=== PATIENT | male | born 1975 | race Caucasian/White ===

== ENCOUNTER 2016-11-11 21:34 | Emergency (ER) | payer MEDICARE, MEDICAID ==
[2013-04-01 14:08] VITALS: BMI 35.4
== END 2016-11-12 01:02 | disposition home or self-care (01) ==
LOC: D.ER 21:34
DX: J06.9 Acute upper respiratory infection, unspecified (principal); F32.9 Major depressive disorder, single episode, unspecified; F41.9 Anxiety disorder, unspecified; F17.200 Nicotine dependence, unspecified, uncomplicated

== ENCOUNTER → 2017-02-18 14:35 | Outpatient (CLI) | payer MEDICARE, MEDICAID ==
[2013-04-01 14:08] VITALS: BMI 35.4
== END | disposition home or self-care (01) ==
LOC: D.LAB 02-17 15:45 → D.LABREF 14:35 → D.LAB 15:00
PROVIDERS: Internal Medicine Gastroenterology
DX: R19.7 Diarrhea, unspecified (principal); K92.1 Melena

== ENCOUNTER 2017-05-13 13:11 | Emergency (ER) | payer MEDICARE, MEDICAID ==
[2013-04-01 14:08] VITALS: BMI 35.4
[2017-05-13 15:10] LABS: BASOPHILS 0.3 % (0-2); EOSINOPHILS 1.2 % (0-7); HEMOGLOBIN 13.9 g/dL (13.5-17.5); IMMATURE GRANULOCYTES 0.3 % (0-5); LYMPHOCYTES 30.9 % (15-50); MCH 34.1 pg (26.0-34.0); MCHC 33.9 g/dL (31.0-37.0); MCV 100.5 fL (80.0-100.0); NEUTROPHILS 60.3 % (40-80); RBC 4.08 10x6/uL (4.20-6.10); RDW 14.1 % (11.5-14.5); WBC 5.8 10x3/uL (4.8-10.8)
[2017-05-13 15:13] LABS: PLATELET COUNT 177 10x3/uL (130-400)
[2017-05-13 15:43] LABS: ALBUMIN 3.3 g/dL (3.4-5.0); ALKALINE PHOSPHATASE 76 U/L (46-116); ALT (SGPT) 36 U/L (10-68); BILIRUBIN - TOTAL 0.43 mg/dL (0.2-1.3); CALC OSMOLALITY 276 mosm/kg (275-300); CALCIUM 8.9 mg/dL (8.5-10.1); CARBON DIOXIDE 23.9 mmol/L (21.0-32.0); CHLORIDE - SERUM 104 mmol/L (98-107); CREATININE - SERUM 1.1 mg/dL (0.6-1.3); GLUCOSE 97 mg/dL (74-106); POTASSIUM - SERUM 4.4 mmol/L (3.5-5.1); PROTEIN - SERUM 6.7 g/dL (6.4-8.2); SODIUM 139 mmol/L (136-145); UREA NITROGEN 9 mg/dL (7-18); eGFR NON AFRICAN AMERICAN 78 mL/min (90-120)
== END 2017-05-13 16:15 | disposition home or self-care (01) ==
LOC: D.ER 13:11
PROVIDERS: Physician Assistant
DX: R55 Syncope and collapse (principal); R42 Dizziness and giddiness; R53.1 Weakness; S00.03XA Contusion of scalp, initial encounter; X58.XXXA Exposure to other specified factors, initial encounter; Y93.89 Activity, other specified; Y92.89 Other specified places as the place of occurrence of the external cause; F17.200 Nicotine dependence, unspecified, uncomplicated

== ENCOUNTER 2018-03-03 15:32 | Emergency (ER) | payer MEDICARE, MEDICAID ==
[2013-04-01 14:08] VITALS: BMI 35.4
== END 2018-03-03 16:43 | disposition home or self-care (01) ==
LOC: D.ER 15:32
DX: S93.401A Sprain of unspecified ligament of right ankle, initial encounter (principal); W19.XXXA Unspecified fall, initial encounter; Y93.89 Activity, other specified; Y92.019 Unspecified place in single-family (private) house as the place of occurrence of the external cause; M25.471 Effusion, right ankle; F17.200 Nicotine dependence, unspecified, uncomplicated

== ENCOUNTER 2019-06-24 13:33 | Inpatient (IN) | payer MEDICARE, MEDICAID ==
[~2019-06-24] VITALS: Ht 175.3 cm; Wt 104.8 kg
[2019-06-24 14:37] LABS: ALBUMIN 2.8 g/dL (3.4-5.0); ALKALINE PHOSPHATASE 64 U/L (46-116); ALT (SGPT) 27 U/L (10-68); BILIRUBIN - TOTAL 0.79 mg/dL (0.2-1.3); CALC OSMOLALITY 273 mosm/kg (275-300); CALCIUM 9.2 mg/dL (8.5-10.1); CARBON DIOXIDE 23.9 mmol/L (21.0-32.0); CHLORIDE - SERUM 100 mmol/L (98-107); CREATININE - SERUM 1.1 mg/dL (0.6-1.3); GLUCOSE 136 mg/dL (74-106); POTASSIUM - SERUM 3.7 mmol/L (3.5-5.1); PROTEIN - SERUM 8.5 g/dL (6.4-8.2); SODIUM 137 mmol/L (136-145); UREA NITROGEN 7 mg/dL (7-18); eGFR NON AFRICAN AMERICAN 77 mL/min (90-120)
[2019-06-24 14:39] LABS: BASOPHILS 0.2 % (0-2); EOSINOPHILS 0 % (0-7); HEMATOCRIT 38.8 % (42.0-54.0); HEMOGLOBIN 13.5 g/dL (13.5-17.5); IMMATURE GRANULOCYTES 0.7 % (0-5); LYMPHOCYTES 9.8 % (15-50); MCH 34.9 pg (26.0-34.0); MCHC 34.8 g/dL (31.0-37.0); MCV 100.3 fL (80.0-100.0); NEUTROPHILS 80.3 % (40-80); RBC 3.87 10x6/uL (4.20-6.10); RDW 13.3 % (11.5-14.5)
[2019-06-24 14:42] LABS: APPEARANCE CLEAR (CLEAR); BILIRUBIN NEGATIVE (NEGATIVE); COLOR YELLOW (YELLOW); GLUCOSE NEGATIVE (NEGATIVE); KETONE NEGATIVE (NEGATIVE); NITRITE NEGATIVE (NEGATIVE); PROTEIN NEGATIVE (NEGATIVE); UROBILINOGEN NORMAL (NORMAL)
[2019-06-24 14:44] LABS: AMYLASE - SERUM 27 U/L (25-115); LIPASE 86 U/L (73-393); WHITE CELLS - URINE 0-5 /hpf (0-5)
[2019-06-24 14:45] LABS: BACTERIA FEW /hpf (NONE SEEN); RED CELLS - URINE OCC /hpf (0-5)
[2019-06-24 14:46] LABS: PLATELET COUNT 360 10x3/uL (130-400)
[2019-06-24 18:47] LABS: APTT 36.9 SECONDS (22.8-39.4); INR 1.69 (0.85-1.17); PROTIME 19.2 SECONDS (11.6-15.0)
[2019-06-24 23:04] LABS: CKMB 0.5 U/L (0.0-3.6); CREATINE KINASE 135 UL (21-232)
[2019-06-24 23:05] LABS: TROPONIN-I < 0.017 ng/mL (0.000-0.060)
[2019-06-24 23:26] VITALS: BP 149/77
[2019-06-24 23:50] VITALS: BMI 34.2
[2019-06-25 01:24] VITALS: BP 131/90
[2019-06-25] MEDS ORDERED: VALIUM10 MG PO (01:59)
[2019-06-25] MEDS ORDERED: NEXIUM40 MG PO (02:00)
[2019-06-25] MEDS ORDERED: PAXIL CR25 MG PO (02:00)
[2019-06-25] MEDS ORDERED: COUMADIN6 MG PO (02:00)
[2019-06-25] MEDS ORDERED: NEURONTIN600 MG PO (02:00)
[2019-06-25] MEDS ORDERED: REXULTI1 MG PO (02:01)
[2019-06-25 05:44] VITALS: BP 127/76
[2019-06-25 06:41] LABS: BASOPHILS 0.1 % (0-2); EOSINOPHILS 0 % (0-7); HEMATOCRIT 32.3 % (42.0-54.0); IMMATURE GRANULOCYTES 0.6 % (0-5); LYMPHOCYTES 11.6 % (15-50); MCH 34.1 pg (26.0-34.0); MCHC 33.1 g/dL (31.0-37.0); MEAN PLATELET VOLUME 9.9 fL (7.4-10.4); MONOCYTES 7.4 % (2-11); NEUTROPHILS 80.3 % (40-80); RBC 3.14 10x6/uL (4.20-6.10); RDW 13.5 % (11.5-14.5)
[2019-06-25 07:05] LABS: APTT 34.6 SECONDS (22.8-39.4)
[2019-06-25 07:06] LABS: INR 1.26 (0.85-1.17); PROTIME 15.3 SECONDS (11.6-15.0)
[2019-06-25 07:07] LABS: HEMOGLOBIN 10.7 g/dL (13.5-17.5); MCV 102.9 fL (80.0-100.0); PLATELET COUNT 278 10x3/uL (130-400); WBC 9.5 10x3/uL (4.8-10.8)
[2019-06-25 07:19] LABS: CALCIUM 8.2 mg/dL (8.5-10.1); CARBON DIOXIDE 28.2 mmol/L (21.0-32.0); CHLORIDE - SERUM 105 mmol/L (98-107); CKMB 0.3 U/L (0.0-3.6); CREATINE KINASE 84 UL (21-232); GLUCOSE 153 mg/dL (74-106); POTASSIUM - SERUM 3.6 mmol/L (3.5-5.1); SODIUM 140 mmol/L (136-145); TROPONIN-I < 0.017 ng/mL (0.000-0.060)
[2019-06-25 07:21] LABS: CALC OSMOLALITY 278 mosm/kg (275-300); CREATININE - SERUM 0.8 mg/dL (0.6-1.3); UREA NITROGEN 5 mg/dL (7-18); eGFR NON AFRICAN AMERICAN > 90 mL/min (90-120)
--- NOTE | 2019-06-25 07:43 | OP ---
PATIENT NAME: MEL MAYEN MEDICAL RECORD: [id number] :73 LOCATION:D.MS [facility] ADMISSION DATE:06/24/19 SURGEON: CHRISTOPHER JOHN MD DATE OF OPERATION: 06/24/2019 PREOPERATIVE DIAGNOSIS: Rectal perforation, rectal foreign body, perirectal abscess. POSTOPERATIVE DIAGNOSIS: Rectal perforation, rectal foreign body, perirectal abscess. SURGEON: Christopher John MD PROCEDURE PERFORMED: 1. Flexible sigmoidoscopy. 2. Laparoscopic lysis of adhesions. 3. Laparotomy with drainage of rectal abscess, diverting loop ileostomy, and left subclavian CVL placement. ANESTHESIA: General. COMPLICATIONS: None. SPECIMENS: None. Case was grossly contaminated. ESTIMATED BLOOD LOSS: 200 cc. OPERATIVE COURSE: After consent was obtained, the patient was taken to the operating room and placed in supine position on the operating table. Next, general anesthesia was given. A timeout was taken to confirm the correct patient and procedure. The left chest was prepped and draped in typical sterile fashion. Local anesthetic was administered. The left subclavian vein was cannulated on the first pass. A guidewire was placed. A skin incision was made. A dilator was passed over the wire in a standard Seldinger fashion. The catheter was advanced to the wire in a standard Seldinger fashion. Biopatch was placed and secured to the skin using 2-0 nylon suture. All 3 ports were aspirated and flushed. Sterile Tegaderm dressing was placed. The patient was then placed into the lithotomy position in stirrups. There is a small curvilinear density noted on the preoperative imaging consistent with a rectal foreign body. At this time, flexible sigmoidoscopy was attempted. The rectum and sigmoid colon were copiously irrigated and suctioned. There was no evidence of mucosal trauma. No evidence of perforation. There is no area of hemorrhage or exudate noted from the first 30 cm of the rectum and colon. The scope was retroflexed and again examined. There was no evidence of trauma or injury within the rectum. At this time, the abdomen was prepped and draped in sterile fashion. Local anesthetic was injected in the right lateral quadrant. A stab incision was made with 11-blade scalpel. Using a 5-mm bladeless optical trocar, the abdomen was entered in direct laparoscopic vision. Adequate pneumoperitoneum was achieved. There were dense adhesions along the anterior midline from the patient's previous laparotomy incision and laparoscopic lysis of adhesions was performed using sharp scissor dissection as well as Harmonic scalpel dissection. The small bowel was retracted cephalad. The pelvis was copiously irrigated and suctioned. There was no trauma identified above the OPERATIVE REPORT [id number] TIARRAMEL S peritoneal reflection. At this time, a small lower midline laparotomy was made from the pubic symphysis towards the umbilicus. Skin incision was made with a 15 blade scalpel. Dissection continued with electrocautery until the subcutaneous tissue. The anterior fascia was identified. The fascia was incised using electrocautery along the midline. Peritoneum was opened under direct vision with electrocautery. Once the peritoneum was incised, the pneumoperitoneum was released. The trocars were removed. During the diagnostic laparoscopy, two additional trocars were placed, one in the right lower quadrant and once the midline was cleared, a third 5-mm trocar into the abdominal midline just above the umbilicus. While opening the peritoneum well above the pubic symphysis, mucosa was encountered upon further examination, we were looking at the mucosa of the inside of the bladder. The Ramírez balloon was identified at the base of the bladder. At this time, a primary bladder repair was performed. The inner layer was closed with a 2-0 chromic suture. The chromic layer was then imbricated using 3-0 Vicryl suture. An Etienne wound retractor was placed. The peritoneum was incised and the long needle left and right sides of the rectum. Blunt dissection was performed along the presacral fascia and abscess cavity was identified on both the right and left sides. At this time, FRANCINE drains were placed through the opening in the peritoneal reflection along the right and left posterior tracts of the rectum along the presacral fascia. The peritoneum was copiously irrigated and suctioned. FRANCINE drains were delivered to the trocar sites. The terminal ileum was identified approximately 10 cm in the proximal ileum. The loop of small bowel was identified, the circular incision was made in the right lower quadrant. Dissection was continued to subcutaneous tissue using electrocautery. A cruciate incision was made in the fascia and the muscles were gently spread. The peritoneum was incised using electrocautery. The loop was then brought through the incision to the anterior abdominal wall. Next, the fascia was closed in the lower midline abdominal incision using #1 looped PDS. Subcutaneous was closed with 3-0 Vicryl suture. The skin was closed with marcelo. FRANCINE drains were secured using 2-0 nylon suture and placed to bulb suction. The lower midline abdominal incision was covered with sterile gauze dressing and blue towel was placed in the right lower quadrant loop ileostomy was then created using a standard Wendy fashion using 3-0 Vicryl suture. An ostomy appliance was placed at the end of the case, all needle and instrument counts were correct. No complications occurred. The patient was extubated and transferred to the PACU in stable condition. TRANSINT:[id number] Voice Confirmation ID: [id number] DOCUMENT ID: [id number] CHRISTOPHER JOHN MD at 0743 CC: [id number] DICTATION DATE: 06/24/192231 CRANE HOOKER: 06/24/192307 ADM IN [facility] [address] [id number]
[2019-06-25 09:04] VITALS: BP 120/73
[2019-06-25 11:46] LABS: CKMB 0.3 U/L (0.0-3.6); CREATINE KINASE 126 UL (21-232)
[2019-06-25 11:47] LABS: TROPONIN-I < 0.017 ng/mL (0.000-0.060)
[2019-06-25 11:58] VITALS: Ht 175.3 cm; Wt 104.8 kg
[2019-06-25 12:42] VITALS: BP 151/98
[2019-06-25 15:01] LABS: % SATURATION 26 % (15-55); IRON 38 ug/dl (35-150); TOTAL IRON BIND CAPACITY 143 ug/dl (260-445); UNSAT IRON BIND CAPACITY 105 ug/dl (150-375)
[2019-06-25 16:22] VITALS: BP 150/89
[2019-06-25 19:26] VITALS: BP 137/89
[2019-06-26] VITALS: BP 140/90
[2019-06-26 05:01] VITALS: BP 133/75
[2019-06-26 06:04] LABS: BASOPHILS 0.3 % (0-2); EOSINOPHILS 0.4 % (0-7); IMMATURE GRANULOCYTES 0.4 % (0-5); LYMPHOCYTES 21.8 % (15-50); MCH 33.8 pg (26.0-34.0); MCHC 32.3 g/dL (31.0-37.0); MCV 104.7 fL (80.0-100.0); MEAN PLATELET VOLUME 10.1 fL (7.4-10.4); MONOCYTES 9.3 % (2-11); NEUTROPHILS 67.8 % (40-80); PLATELET COUNT 283 10x3/uL (130-400); RBC 2.96 10x6/uL (4.20-6.10); RDW 13.9 % (11.5-14.5); WBC 7.7 10x3/uL (4.8-10.8)
[2019-06-26 06:20] LABS: CALC OSMOLALITY 276 mosm/kg (275-300); CALCIUM 7.9 mg/dL (8.5-10.1); CARBON DIOXIDE 29.5 mmol/L (21.0-32.0); CHLORIDE - SERUM 103 mmol/L (98-107); CREATININE - SERUM 0.9 mg/dL (0.6-1.3); GLUCOSE 132 mg/dL (74-106); POTASSIUM - SERUM 3.6 mmol/L (3.5-5.1); SODIUM 139 mmol/L (136-145); eGFR NON AFRICAN AMERICAN > 90 mL/min (90-120)
[2019-06-26 06:21] LABS: UREA NITROGEN 3 mg/dL (7-18)
[2019-06-26 06:29] LABS: APTT 33.4 SECONDS (22.8-39.4); INR 1.18 (0.85-1.17); PROTIME 14.5 SECONDS (11.6-15.0)
[2019-06-26 08:20] VITALS: BP 130/76
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
[2019-06-26 13:25] VITALS: BP 118/75
[2019-06-26 16:39] VITALS: BP 123/76
[2019-06-26 20:00] VITALS: BP 125/74
[2019-06-27] VITALS: BP 118/79
[2019-06-27 04:49] LABS: BASOPHILS 0.2 % (0-2); EOSINOPHILS 1.6 % (0-7); HEMATOCRIT 27.6 % (42.0-54.0); HEMOGLOBIN 8.8 g/dL (13.5-17.5); IMMATURE GRANULOCYTES 0.5 % (0-5); MCH 33.2 pg (26.0-34.0); MCHC 31.9 g/dL (31.0-37.0); MCV 104.2 fL (80.0-100.0); MEAN PLATELET VOLUME 9.8 fL (7.4-10.4); MONOCYTES 8.8 % (2-11); NEUTROPHILS 62.9 % (40-80); PLATELET COUNT 266 10x3/uL (130-400); RBC 2.65 10x6/uL (4.20-6.10); RDW 13.7 % (11.5-14.5); WBC 6.2 10x3/uL (4.8-10.8)
[2019-06-27 04:58] LABS: INR 1.16 (0.85-1.17); PROTIME 14.3 SECONDS (11.6-15.0)
[2019-06-27 04:59] LABS: APTT 32.2 SECONDS (22.8-39.4)
[2019-06-27 05:02] LABS: CALC OSMOLALITY 274 mosm/kg (275-300); CALCIUM 7.9 mg/dL (8.5-10.1); CARBON DIOXIDE 30.6 mmol/L (21.0-32.0); CHLORIDE - SERUM 104 mmol/L (98-107); GLUCOSE 118 mg/dL (74-106); POTASSIUM - SERUM 3.6 mmol/L (3.5-5.1); SODIUM 138 mmol/L (136-145); eGFR NON AFRICAN AMERICAN 86 mL/min (90-120)
[2019-06-27 05:04] LABS: UREA NITROGEN 6 mg/dL (7-18)
[2019-06-27 08:49] VITALS: BP 111/67
[2019-06-27 12:44] VITALS: BP 117/78
--- NOTE | 2019-06-27 14:15 | MORECARE ---
CASE MANAGEMENT DISCHARGE SUMMARY PATIENT: MEL MAYEN UNIT: [id number] ADM DATE: 06/24/19 AGE: 44 : 73 SEX: M ROOM/BED: D.2209 AUTHOR: JEANNETTE COOL PHYSICIAN: REFERRING PHYSICIAN: CHRISTOPHER JOHN MD DATE OF SERVICE: 06/27/19 Discharge Plan Patient Name: MEL MAYEN Facility: [facility]:[place] : 1975 Planned Disposition: Home Health Service Anticipated Discharge Date: Discharge Date: Expected LOS: Initial Reviewer: [email or web address] Initial Review Date: 06/24/2019 Generated: 06/27/19 3:15 pm DCPIA - Discharge Planning Initial Assessment Updated by [email or web address]: Luli Bhat on 06/27/19 2:10 pm * How many steps to enter\exit or inside your home? * PCP FELICIA * Pharmacy [facility] * Preadmission Environment Home with Family * ADLs Independent * Equipment Ostomy Supplies * List name and contact numbers for known caregivers / representatives who currently or will assist patient after discharge: VIVI GEORGE [phone] * Verbal permission to speak to the caregivers and representatives has been obtained from the patient. N/A * Community resources currently utilized None * Additional services required to return to the preadmission environment? Yes * Can the patient safely return to the preadmission environment? Yes * Has this patient been hospitalized within the prior 30 days at any hospital? No Patient Name: MEL MAYEN Page [id number] at 1415 All edits/amendments must be made on the electronic document DICTATION DATE: 06/27/191414 MEDICAL DOCTOR: DAPHNE 06/27/19 141 RPT#: [id number] DC DATE: STATUS: ADM IN [facility] [address] [place] [address] END OF REPORT
--- NOTE | 2019-06-27 14:23 | MORECARE ---
CASE MANAGEMENT DISCHARGE SUMMARY PATIENT: MEL MAYEN UNIT: [id number] ADM DATE: 06/24/19 AGE: 44 : 73 SEX: M ROOM/BED: D.2209 AUTHOR: SILVINA,DOC PHYSICIAN: REFERRING PHYSICIAN: CHRISTOPHER JOHN MD DATE OF SERVICE: 06/27/19 Discharge Plan Patient Name: MEL MAYEN Facility: [facility]:[place] : 1975 Planned Disposition: Home Health Service Anticipated Discharge Date: Discharge Date: Expected LOS: Initial Reviewer: [email or web address] Initial Review Date: 06/24/2019 Generated: 06/27/19 3:22 pm Comments DCP- Discharge Planning Updated by [id number]: Luli Bhat on 06/27/19 1:[address] Patient Name: MEL MAYEN Admission Status: ER Accout number: [id number] Admission Date: 06-24-2019 : 1975 Admission Diagnosis: Attending: CHRISTOPHER JOHN Current LOS: 3 Anticipated DC Date: Planned Disposition: Home Health Service Primary Insurance: [employer] ADV Discharge Planning Comments: CM met with patient to complete initial dc planning assessment. CM educated patient on the CM role and verbal consent given by patient to complete assessment. Patient lives at home with his mother where he was independent with his care. At discharge patient plans to return home and feels this is a safe discharge. CM discussed availability of home health, rehab services, and medical equipment. He has a new ostomy and will need home health. He does not care who he uses, just needs to take his insurance. IMM served and went over. Referral sent to [facility]. CM will continue to follow and will assist as needed with dc plans/needs. Hazardous Substances Scientist: Luli Bhat DCPIA - Discharge Planning Initial Assessment Updated by [email or web address]: Luli Bhat on 06/27/19 2:10 pm * How many steps to enter\exit or inside your home? * PCP DUARTE * Pharmacy [facility] * Preadmission Environment Home with Family * ADLs Independent * Equipment Ostomy Supplies * List name and contact numbers for known caregivers / representatives who currently or will assist patient after discharge: VIVI GEORGE [phone] * Verbal permission to speak to the caregivers and representatives has been obtained from the patient. N/A * Community resources currently utilized None * Additional services required to return to the preadmission environment? Yes * Can the patient safely return to the preadmission environment? Yes * Has this patient been hospitalized within the prior 30 days at any hospital? No External Providers External Provider: [facility] Next Contact Date: Service Request Date: Service Type: Resolution: Reviewer: Comments: Coverage Notice Reviewer: [email or web address] Gagandeep Bhat Notice Issued Date-Time: 06/27/2019 14:10 Notice Type: IM Discharge Notice Notice Delivered To: Patient Relationship to Patient: Vinegar Maker Name: Delivery Method: HAND - Hand Delivered Peace Days: Prior Verbal Notification: Recipient Understood Notice: Yes Recipient Signature: Yes Med Rec Note Co-signed by Attending: Coverage Notice Comment: Reviewer: [id number] Gagandeep Bhat Notice Issued Date-Time: 06/27/2019 14:10 Notice Type: Patient Choice Letter Notice Delivered To: Patient Relationship to Patient: Vinegar Maker Name: Delivery Method: HAND - Hand Delivered Peace Days: Prior Verbal Notification: Recipient Understood Notice: Yes Recipient Signature: Yes Med Rec Note Co-signed by Attending: Coverage Notice Comment: [facility] Last DP export: 06/27/19 1:15 p Patient Name: MEL MAYEN Page [id number] at 1423 All edits/amendments must be made on the electronic document DICTATION DATE: 06/27/191421 HEALTH SERVICES DIRECTOR: DAPHNE 06/27/19 142 RPT#: [id number] DC DATE: STATUS: ADM IN [facility] [address] [place] [address] END OF REPORT
--- NOTE | 2019-06-27 14:30 | EC ---
PATIENT:MEL MAYEN DATE OF SERVICE: 06/24/19 SEX: M MEDICAL RECORD: [id number] DATE OF : 73 LOCATION:D.MS [facility] AGE OF PATIENT: 44 ADMISSION DATE: 06/24/19 REFERRING PHYSICIAN: INTERPRETING PHYSICIAN: ALESSIA QUIÑONES MD ECHOCARDIOGRAM REPORT ECHO CHARGES 4 ECHO COMPLETE Date: 06/25/19 CLINICAL DIAGNOSIS: ABNORMAL ECG, CP ECHOCARDIOGRAPHIC MEASUREMENTS (adult normal given) AC root (d.<3.7cm) 3.1 cm LV Septum d (<1.2 cm> 0.8 cm Valve Excursion 1.4 cm LV Septum (systole) 1.5 cm Left Atria (s.<4.0cm> 3.3 cm LVPW d(<1.2cm) 1.2 cm RV (d.<2.3cm) 2.4 cm LVPW (sytole) 1.6 cm LV diastole(<5.6CM) 4.5 cm MV E-F(>70mm/sec) cm LV systole 3.2 cm LVOT Diameter 2.0 cm MV exc.(>10mm) cm Est.ejection fraction (50-75%) % DOPPLER: LVIT cm/sec A 77 cm/sec E 80 cm/sec LA cm/sec RVSP 17.9 mmHg LVOT 118 cm/sec AOP1/2T m/s Asc. Ao 147 cm/sec RVOT 84 cm/sec RA cm/sec PA 113 cm/sec AV Gradient Peak 8.7 mmHg AV Mean 3.6 mmHg AV Area 2.9 cm MV Gradient Peak 4.4 mmHg MV Mean 2.3 mmHg MV Area cm COMMENTS: Occ Therapist: Allie LINK Forest[employer] Faculty Member: 3 Dr. Dasilva TAPE# PACS Pericardial Effusion N DATE OF SERVICE: Adequate 2-D echo, color-flow and spectral Doppler, and M-mode. No LVH. LV internal dimensions are normal. Wall motion is normal. EF is greater than 55%. Aortic valve is tricuspid with good valve excursion. No significant AI. Left atrium is normal. Mitral valve shows no prolapse. Trace MR. Right-sided chambers are grossly normal. Trace TR. TRANSINT:[id number] Voice Confirmation ID: [id number] DOCUMENT ID: [id number] ECHOCARDIOGRAM REPORT [id number] MEL MAYEN ALESSIA QUIÑONES A MD at 1430 CC: [id number] DICTATION DATE: 06/26/19 1051 GEL COATER: 06/26/19 1454 ADM IN [facility] [address] [id number]
[2019-06-27 17:55] VITALS: BP 125/77
[2019-06-27 20:00] VITALS: BP 116/56
[2019-06-28] VITALS: BP 116/70
[2019-06-28 04:00] VITALS: BP 109/34
[2019-06-28 06:08] LABS: BASOPHILS 0.2 % (0-2); EOSINOPHILS 2.2 % (0-7); HEMATOCRIT 28.2 % (42.0-54.0); HEMOGLOBIN 8.9 g/dL (13.5-17.5); IMMATURE GRANULOCYTES 0.6 % (0-5); MCH 33.5 pg (26.0-34.0); MCHC 31.6 g/dL (31.0-37.0); MONOCYTES 8.8 % (2-11); NEUTROPHILS 63.2 % (40-80); PLATELET COUNT 317 10x3/uL (130-400); RBC 2.66 10x6/uL (4.20-6.10); RDW 13.7 % (11.5-14.5); WBC 5.4 10x3/uL (4.8-10.8)
[2019-06-28 06:42] LABS: CALCIUM 7.9 mg/dL (8.5-10.1); CARBON DIOXIDE 30.6 mmol/L (21.0-32.0); CHLORIDE - SERUM 110 mmol/L (98-107); CREATININE - SERUM 1.1 mg/dL (0.6-1.3); GLUCOSE 106 mg/dL (74-106); SODIUM 145 mmol/L (136-145); eGFR NON AFRICAN AMERICAN 77 mL/min (90-120)
[2019-06-28 06:43] LABS: CALC OSMOLALITY 285 mosm/kg (275-300); POTASSIUM - SERUM 4.6 mmol/L (3.5-5.1); UREA NITROGEN 4 mg/dL (7-18)
[2019-06-28 09:38] VITALS: BP 120/76
[2019-06-28 12:11] VITALS: BP 127/83
[2019-06-28 16:51] VITALS: BP 139/86
[2019-06-28 18:42] LABS: APPEARANCE HAZY (CLEAR); COLOR PINK (YELLOW); GLUCOSE NEGATIVE (NEGATIVE); KETONE NEGATIVE (NEGATIVE); NITRITE NEGATIVE (NEGATIVE); PROTEIN NEGATIVE (NEGATIVE); UROBILINOGEN NORMAL (NORMAL)
[2019-06-28 18:43] LABS: BILIRUBIN NEGATIVE (NEGATIVE); RED CELLS - URINE 25-50 /hpf (0-5); WHITE CELLS - URINE 0-5 /hpf (0-5)
[2019-06-28 20:00] VITALS: BP 133/86
[2019-06-29] VITALS: BP 129/84
[2019-06-29 06:14] LABS: BASOPHILS 0.3 % (0-2); EOSINOPHILS 1.9 % (0-7); HEMATOCRIT 29.8 % (42.0-54.0); HEMOGLOBIN 9.5 g/dL (13.5-17.5); IMMATURE GRANULOCYTES 0.4 % (0-5); LYMPHOCYTES 26.1 % (15-50); MCH 33.7 pg (26.0-34.0); MCHC 31.9 g/dL (31.0-37.0); MCV 105.7 fL (80.0-100.0); MEAN PLATELET VOLUME 10.2 fL (7.4-10.4); MONOCYTES 8.1 % (2-11); NEUTROPHILS 63.2 % (40-80); PLATELET COUNT 363 10x3/uL (130-400); RBC 2.82 10x6/uL (4.20-6.10); RDW 13.7 % (11.5-14.5)
[2019-06-29 06:25] LABS: WBC 6.8 10x3/uL (4.8-10.8)
[2019-06-29 06:28] LABS: INR 1.1 (0.85-1.17); PROTIME 13.7 SECONDS (11.6-15.0)
[2019-06-29 06:43] LABS: CALC OSMOLALITY 282 mosm/kg (275-300); CALCIUM 8.6 mg/dL (8.5-10.1); CARBON DIOXIDE 30.6 mmol/L (21.0-32.0); CHLORIDE - SERUM 109 mmol/L (98-107); CREATININE - SERUM 1.1 mg/dL (0.6-1.3); GLUCOSE 86 mg/dL (74-106); POTASSIUM - SERUM 4.7 mmol/L (3.5-5.1); SODIUM 143 mmol/L (136-145); eGFR NON AFRICAN AMERICAN 77 mL/min (90-120)
[2019-06-29 06:45] LABS: UREA NITROGEN 9 mg/dL (7-18)
[2019-06-29 08:30] VITALS: BP 146/65
[2019-06-29 12:45] VITALS: BP 113/87
[2019-06-29] MEDS ORDERED: HYDROCODON-ACE1 EAC7 PO (13:04)
[2019-06-29] MEDS ORDERED: LEVOFLOXACIN500 MG PO (13:04)
--- NOTE | 2019-06-29 13:57 | MORECARE ---
CASE MANAGEMENT DISCHARGE SUMMARY PATIENT: MEL MAYEN UNIT: [id number] ADM DATE: 06/24/19 AGE: 44 : 73 SEX: M ROOM/BED: D.2205 AUTHOR: JEANNETTE COOL PHYSICIAN: REFERRING PHYSICIAN: CHRISTOPHER JOHN MD DATE OF SERVICE: 06/29/19 Discharge Plan Patient Name: MEL MAYEN Facility: [facility]:[place] : 1975 Planned Disposition: Home Health Service Anticipated Discharge Date: Discharge Date: Expected LOS: Initial Reviewer: [email or web address] Initial Review Date: 06/24/2019 Generated: 06/29/19 2:57 pm Comments DCP- Discharge Planning Updated by [email or web address]: Luli Bhat on 06/29/19 12:[address] Patient discharging home with [facility] today DCP- Discharge Planning Updated by [email or web address]: Luli Bhat on 06/27/19 1:[address] Patient Name: MEL MAYEN Admission Status: ER Accout number: [id number] Admission Date: 06-24-2019 : 1975 Admission Diagnosis: Attending: CHRISTOPHER JOHN Current LOS: 3 Anticipated DC Date: Planned Disposition: Home Health Service Primary Insurance: [employer]ICARE ADV Discharge Planning Comments: CM met with patient to complete initial dc planning assessment. CM educated patient on the CM role and verbal consent given by patient to complete assessment. Patient lives at home with his mother where he was independent with his care. At discharge patient plans to return home and feels this is a safe discharge. CM discussed availability of home health, rehab services, and medical equipment. He has a new ostomy and will need home health. He does not care who he uses, just needs to take his insurance. IMM served and went over. Referral sent to [facility]. CM will continue to follow and will assist as needed with dc plans/needs. Business Quality Assurance Analyst: Luli Bhat DCPIA - Discharge Planning Initial Assessment Updated by [email or web address]: Luli Bhat on 06/27/19 2:10 pm * How many steps to enter\exit or inside your home? * PCP DUARTE * Pharmacy [facility] * Preadmission Environment Home with Family * ADLs Independent * Equipment Ostomy Supplies * List name and contact numbers for known caregivers / representatives who currently or will assist patient after discharge: VIVI GEORGE [phone] * Verbal permission to speak to the caregivers and representatives has been obtained from the patient. N/A * Community resources currently utilized None * Additional services required to return to the preadmission environment? Yes * Can the patient safely return to the preadmission environment? Yes * Has this patient been hospitalized within the prior 30 days at any hospital? No Coverage Notice Reviewer: [email or web address] Gagandeep Bhat Notice Issued Date-Time: 06/27/2019 14:10 Notice Type: IM Discharge Notice Notice Delivered To: Patient Relationship to Patient: Senior Benefits Specialist Name: Delivery Method: HAND - Hand Delivered Peace Days: Prior Verbal Notification: Recipient Understood Notice: Yes Recipient Signature: Yes Med Rec Note Co-signed by Attending: Coverage Notice Comment: Reviewer: [id number] Gagandeep Bhat Notice Issued Date-Time: 06/27/2019 14:10 Notice Type: Patient Choice Letter Notice Delivered To: Patient Relationship to Patient: Senior Benefits Specialist Name: Delivery Method: HAND - Hand Delivered Peace Days: Prior Verbal Notification: Recipient Understood Notice: Yes Recipient Signature: Yes Med Rec Note Co-signed by Attending: Coverage Notice Comment: [facility] Last DP export: 06/27/19 1:23 p Patient Name: MEL MAYEN Page 24451 at 1357 All edits/amendments must be made on the electronic document DICTATION DATE: 06/29/19 1357 COIL INSPECTOR: DAPHNE 06/29/19 1357 RPT#: [id number] DC DATE: STATUS: ADM IN [facility] [address] [place] [address] END OF REPORT
--- NOTE | 2019-07-04 12:06 | MORECARE ---
CASE MANAGEMENT DISCHARGE SUMMARY PATIENT: MEL MAYEN UNIT: [id number] ADM DATE: 06/24/19 AGE: 44 : 73 SEX: M ROOM/BED: D.2204 AUTHOR: SILVINA,DOC PHYSICIAN: REFERRING PHYSICIAN: CHRISTOPHER JOHN MD DATE OF SERVICE: 07/04/19 Discharge Plan Patient Name: MEL MAYEN Facility: [facility]:[place] : 1975 Planned Disposition: Home Health Service Anticipated Discharge Date: Discharge Date: 06/29/2019 Expected LOS: Initial Reviewer: [email or web address] Initial Review Date: 06/24/2019 Generated: 07/04/19 1:06 pm Comments DCP- Discharge Planning Updated by [email or web address]: Luli Bhat on 06/29/19 12:[address] Patient discharging home with [facility] today DCP- Discharge Planning Updated by [id number]: Luli Bhat on 06/27/19 1:[address] Patient Name: MEL MAYEN Admission Status: ER Accout number: [id number] Admission Date: 06-24-2019 : 1975 Admission Diagnosis: Attending: CHRISTOPHER JOHN Current LOS: 3 Anticipated DC Date: Planned Disposition: Home Health Service Primary Insurance: [employer]ICARE ADV Discharge Planning Comments: CM met with patient to complete initial dc planning assessment. CM educated patient on the CM role and verbal consent given by patient to complete assessment. Patient lives at home with his mother where he was independent with his care. At discharge patient plans to return home and feels this is a safe discharge. CM discussed availability of home health, rehab services, and medical equipment. He has a new ostomy and will need home health. He does not care who he uses, just needs to take his insurance. IMM served and went over. Referral sent to [facility]. CM will continue to follow and will assist as needed with dc plans/needs. Orchid Superintendent: Luli Bhat DCPIA - Discharge Planning Initial Assessment Updated by [email or web address]: Luli Bhat on 06/27/19 2:10 pm * How many steps to enter\exit or inside your home? * PCP DUARTE * [facility] * Preadmission Environment Home with Family * ADLs Independent * Equipment Ostomy Supplies * List name and contact numbers for known caregivers / representatives who currently or will assist patient after discharge: VIVI GEORGE [phone] * Verbal permission to speak to the caregivers and representatives has been obtained from the patient. N/A * Community resources currently utilized None * Additional services required to return to the preadmission environment? Yes * Can the patient safely return to the preadmission environment? Yes * Has this patient been hospitalized within the prior 30 days at any hospital? No Coverage Notice Reviewer: [email or web address] Gagandeep Bhat Notice Issued Date-Time: 06/27/2019 14:10 Notice Type: IM Discharge Notice Notice Delivered To: Patient Relationship to Patient: Machine Plate Stacker Name: Delivery Method: HAND - Hand Delivered Peace Days: Prior Verbal Notification: Recipient Understood Notice: Yes Recipient Signature: Yes Med Rec Note Co-signed by Attending: Coverage Notice Comment: Reviewer: [email or web address] Bhat Notice Issued Date-Time: 06/27/2019 14:10 Notice Type: Patient Choice Letter Notice Delivered To: Patient Relationship to Patient: Machine Plate Stacker Name: Delivery Method: HAND - Hand Delivered Peace Days: Prior Verbal Notification: Recipient Understood Notice: Yes Recipient Signature: Yes Med Rec Note Co-signed by Attending: Coverage Notice Comment: [facility] Last DP export: 06/29/19 12:57 p Patient Name: MEL MAYEN Page [phone] at 1206 All edits/amendments must be made on the electronic document DICTATION DATE: 07/04/19 1206 BOOM CRANE OPERATOR: DAPHNE 07/04/19 1206 RPT#: [id number] DC DATE:06/29/19 STATUS: DIS IN [facility] [address] [place] [address] END OF REPORT
== END 2019-06-29 15:15 | disposition home or self-care (01) | DRG 853 ==
LOC: D.ER 13:33 → D.MS 18:34
PROVIDERS: Family Medicine; Internal Medicine Nephrology; ADMIT Surgery; ATTEND Surgery
PROC: 0DJD8ZZ Inspection of Lower Intestinal Tract, Via Natural or Artificial Opening Endoscopic (ICD-10-PCS; 2019-06-24)
PROC: 05H633Z Insertion of Infusion Device into Left Subclavian Vein, Percutaneous Approach (ICD-10-PCS; 2019-06-24)
PROC: 0D1B0Z4 Bypass Ileum to Cutaneous, Open Approach (ICD-10-PCS; principal; 2019-06-24 21:05)
PROC: 0TQB0ZZ Repair Bladder, Open Approach (ICD-10-PCS; 2019-06-24 21:05)
PROC: 0D9P0ZZ Drainage of Rectum, Open Approach (ICD-10-PCS; 2019-06-24 21:05)
PROC: 0DNW4ZZ Release Peritoneum, Percutaneous Endoscopic Approach (ICD-10-PCS; 2019-06-24 21:05)
DX: A41.9 Sepsis, unspecified organism (principal); K63.1 Perforation of intestine (nontraumatic); F17.213 Nicotine dependence, cigarettes, with withdrawal; N99.72 Accidental puncture and laceration of a genitourinary system organ or structure during other procedure; T18.5XXA Foreign body in anus and rectum, initial encounter; D64.9 Anemia, unspecified; F10.10 Alcohol abuse, uncomplicated; M32.9 Systemic lupus erythematosus, unspecified; F31.9 Bipolar disorder, unspecified

== ENCOUNTER → 2019-07-08 11:25 | Outpatient (CLI) | payer MEDICARE, MEDICAID ==
[2019-06-25 11:58] VITALS: BMI 34.1
[~2019-07-08 11:25] MED LIST: COUMADIN6 MG PO; HYDROCODON-ACE1 EAC7 PO; LEVOFLOXACIN500 MG PO; NEURONTIN600 MG PO; NEXIUM40 MG PO; PAXIL CR25 MG PO; REXULTI1 MG PO; VALIUM10 MG PO
[2019-07-08 14:15] LABS: APPEARANCE HAZY (CLEAR); BACTERIA MODERATE /hpf (NONE SEEN); BILIRUBIN NEGATIVE (NEGATIVE); COLOR YELLOW (YELLOW); EPITHELIAL CELLS 0-5 /hpf (0-5); GLUCOSE NEGATIVE (NEGATIVE); KETONE NEGATIVE (NEGATIVE); NITRITE NEGATIVE (NEGATIVE); PROTEIN NEGATIVE (NEGATIVE); RED CELLS - URINE 0-5 /hpf (0-5); SPECIFIC GRAVITY 1.025 (1.005-1.020); UROBILINOGEN NORMAL (NORMAL); YEAST >1+ WITH HYPHAE /hpf (NONE SEEN)
[2019-07-08 14:16] LABS: MUCUS <1+ /lpf (NONE SEEN)
== END | disposition home or self-care (01) ==
LOC: D.LABREF 11:25
PROVIDERS: ATTEND Family Medicine
DX: K56.609 Unspecified intestinal obstruction, unspecified as to partial versus complete obstruction (principal)

== ENCOUNTER → 2019-08-03 07:55 | Outpatient (CLI) | payer MEDICARE, MEDICAID ==
[2019-06-25 11:58] VITALS: BMI 34.1
== END | disposition home or self-care (01) ==
LOC: D.CT 08-01 11:00
PROVIDERS: ATTEND Surgery
DX: Z93.2 Ileostomy status (principal)

== ENCOUNTER 2019-08-19 07:37 | Inpatient (IN) | payer MEDICARE, MEDICAID ==
[~2019-08-19] VITALS: Ht 175.3 cm; Wt 100.0 kg
[2019-08-19 14:22] LABS: HEMATOCRIT 38.1 % (42.0-54.0); HEMOGLOBIN 12.4 g/dL (13.5-17.5); MCH 33.1 pg (26.0-34.0); MCHC 32.5 g/dL (31.0-37.0); MCV 101.6 fL (80.0-100.0); MEAN PLATELET VOLUME 9.7 fL (7.4-10.4); RBC 3.75 10x6/uL (4.20-6.10); RDW 14.9 % (11.5-14.5); WBC 8.3 10x3/uL (4.8-10.8)
[2019-08-19 14:29] LABS: APTT 27.8 SECONDS (22.8-39.4); INR 1.62 (0.85-1.17); PROTIME 18.6 SECONDS (11.6-15.0)
[2019-08-22 06:13] VITALS: BP 138/72; BMI 31.9
[2019-08-22 10:46] VITALS: BP 151/87
[2019-08-22 15:48] VITALS: BP 150/89
[2019-08-22 17:25] VITALS: BP 126/55
[2019-08-22 20:53] VITALS: BP 112/68
[2019-08-23] VITALS (7 sets, daily range): BP systolic 99–137; BP diastolic 56–73; Ht 175.3 cm; Wt 100.0 kg
[2019-08-23 06:40] LABS: BASOPHILS 0.1 % (0-2); EOSINOPHILS 0 % (0-7); HEMATOCRIT 30.5 % (42.0-54.0); HEMOGLOBIN 9.9 g/dL (13.5-17.5); IMMATURE GRANULOCYTES 0.1 % (0-5); LYMPHOCYTES 14.8 % (15-50); MCH 32.9 pg (26.0-34.0); MCHC 32.5 g/dL (31.0-37.0); MCV 101.3 fL (80.0-100.0); MEAN PLATELET VOLUME 9.6 fL (7.4-10.4); MONOCYTES 5.9 % (2-11); NEUTROPHILS 79.1 % (40-80); RBC 3.01 10x6/uL (4.20-6.10); RDW 14.7 % (11.5-14.5); WBC 8.5 10x3/uL (4.8-10.8)
[2019-08-23 06:43] LABS: PLATELET COUNT 188 10x3/uL (130-400)
[2019-08-23 06:53] LABS: CALC OSMOLALITY 277 mosm/kg (275-300); CALCIUM 8.2 mg/dL (8.5-10.1); CARBON DIOXIDE 27.5 mmol/L (21.0-32.0); CHLORIDE - SERUM 104 mmol/L (98-107); CREATININE - SERUM 0.9 mg/dL (0.6-1.3); POTASSIUM - SERUM 4.2 mmol/L (3.5-5.1); SODIUM 139 mmol/L (136-145); UREA NITROGEN 6 mg/dL (7-18); eGFR NON AFRICAN AMERICAN > 90 mL/min (90-120)
[2019-08-23 06:54] LABS: GLUCOSE 134 mg/dL (74-106)
[2019-08-24 01:20] VITALS: BP 137/85
[2019-08-24 05:11] VITALS: BP 134/81
[2019-08-24 06:00] LABS: BASOPHILS 0.1 % (0-2); EOSINOPHILS 0.3 % (0-7); HEMATOCRIT 32.1 % (42.0-54.0); HEMOGLOBIN 10.3 g/dL (13.5-17.5); IMMATURE GRANULOCYTES 0.3 % (0-5); MCH 32.9 pg (26.0-34.0); MCHC 32.1 g/dL (31.0-37.0); MCV 102.6 fL (80.0-100.0); MEAN PLATELET VOLUME 9.3 fL (7.4-10.4); MONOCYTES 7.7 % (2-11); NEUTROPHILS 69.6 % (40-80); PLATELET COUNT 185 10x3/uL (130-400); RBC 3.13 10x6/uL (4.20-6.10); RDW 15.3 % (11.5-14.5); WBC 7.8 10x3/uL (4.8-10.8)
[2019-08-24 06:40] LABS: CARBON DIOXIDE 33.4 mmol/L (21.0-32.0); CHLORIDE - SERUM 105 mmol/L (98-107); GLUCOSE 95 mg/dL (74-106); SODIUM 145 mmol/L (136-145); eGFR NON AFRICAN AMERICAN 86 mL/min (90-120)
[2019-08-24 06:52] LABS: CALC OSMOLALITY 285 mosm/kg (275-300); POTASSIUM - SERUM 3.4 mmol/L (3.5-5.1); UREA NITROGEN 3 mg/dL (7-18)
[2019-08-24 08:01] VITALS: BP 147/87
[2019-08-24] MEDS ORDERED: HYDROCODON-ACE1 EAC7 PO (09:33)
[2019-08-24] MEDS ORDERED: LEVOFLOXACIN500 MG PO (09:35)
[2019-08-24 10:11] LABS: INR 1.08 (0.85-1.17); PROTIME 13.5 SECONDS (11.6-15.0)
[2019-08-24 13:57] VITALS: BP 122/82
--- NOTE | 2019-08-24 14:19 | MORECARE ---
CASE MANAGEMENT DISCHARGE SUMMARY PATIENT: MEL MAYEN UNIT: [id number] ADM DATE: 08/22/19 AGE: 44 : [birth year] SEX: M ROOM/BED: D.2237 AUTHOR: SILVINA,DOC PHYSICIAN: REFERRING PHYSICIAN: CHRISTOPHER JOHN MD DATE OF SERVICE: 08/24/19 Discharge Plan Patient Name: MEL MAYEN Facility: [facility]:[place] : 1975 Planned Disposition: Home Hlth Svc w Plan Readm Anticipated Discharge Date: 08/25/19 Discharge Date: Expected LOS: 3 Initial Reviewer: [email or web address] Initial Review Date: 08/24/2019 Generated: 08/24/19 3:18 pm Comments DCP- Discharge Planning Updated by [email or web address]: Emily Baugh on 08/24/19 1:[address] Patient Name: MEL MAYEN Admission Status: Elective Accout number: [id number] Admission Date: 08-22-2019 : 1975 Admission Diagnosis: Attending: CHRISTOPHER JOHN Current LOS: 2 Anticipated DC Date: 08-25-2019 Planned Disposition: Home Hlth Svc w Plan Readm Primary Insurance: [employer] ADV Discharge Planning Comments: CM met with patient to complete initial dc planning assessment. CM educated patient on the CM role and verbal consent given by patient to complete assessment. Patient lives at home with his mother. At discharge patient plans to return and feels this is a safe discharge. CM discussed availability of home health, rehab services, and medical equipment. Patient states he is current with [facility] and would like to resume this on discharge. I spoke with Meagan at [facility] and they will resume care on discharge with wound care. CM will continue to follow and will assist as needed with dc plans/needs. Warehouse Laborer: Emily Baugh DCPIA - Discharge Planning Initial Assessment Updated by [email or web address]: Emily Baugh on 08/24/19 2:12 pm * Is the patient Alert and Oriented? Yes * How many steps to enter\exit or inside your home? 0/0 * PCP Dr. Huffman * [facility] [address] * Preadmission Environment Home with Family * ADLs Independent * Equipment None * List name and contact numbers for known caregivers / representatives who currently or will assist patient after discharge: Payton chun - [phone] * Verbal permission to speak to the caregivers and representatives has been obtained from the patient. Yes * Community resources currently utilized Home Health * Please name any agencies selected above. [place] * Additional services required to return to the preadmission environment? No * Can the patient safely return to the preadmission environment? Yes * Has this patient been hospitalized within the prior 30 days at any hospital? No Coverage Notice Reviewer: [id number] Gagandeep Baugh Notice Issued Date-Time: 08/24/2019 10:15 Notice Type: Patient Choice Letter Notice Delivered To: Patient Relationship to Patient: Self Associate Pastor Name: Delivery Method: HAND - Hand Delivered Peace Days: Prior Verbal Notification: Recipient Understood Notice: Yes Recipient Signature: Yes Med Rec Note Co-signed by Attending: Coverage Notice Comment: TANMAY for [facility] Patient Name: MEL MAYEN Page [phone] at 1419 All edits/amendments must be made on the electronic document DICTATION DATE: 08/24/191417 NEUROLOGIST: DAPHNE 08/24/191417 RPT#: [id number] DC DATE: STATUS: ADM IN [facility] [address] [place] [address] END OF REPORT
[2019-08-24 16:09] VITALS: BP 115/65
[2019-08-24 20:38] VITALS: BP 148/86
[2019-08-25 01:26] VITALS: BP 148/87
[2019-08-25 04:41] VITALS: BP 154/80
[2019-08-25 08:20] LABS: BASOPHILS 0.3 % (0-2); EOSINOPHILS 0.2 % (0-7); HEMATOCRIT 33.8 % (42.0-54.0); HEMOGLOBIN 10.4 g/dL (13.5-17.5); IMMATURE GRANULOCYTES 0.6 % (0-5); LYMPHOCYTES 22.2 % (15-50); MCH 32.6 pg (26.0-34.0); MCHC 30.8 g/dL (31.0-37.0); MEAN PLATELET VOLUME 9.9 fL (7.4-10.4); MONOCYTES 8.8 % (2-11); NEUTROPHILS 67.9 % (40-80); PLATELET COUNT 179 10x3/uL (130-400); RBC 3.19 10x6/uL (4.20-6.10); RDW 15.8 % (11.5-14.5); WBC 6.4 10x3/uL (4.8-10.8)
[2019-08-25 08:29] LABS: CALC OSMOLALITY 283 mosm/kg (275-300); CALCIUM 8.6 mg/dL (8.5-10.1); CARBON DIOXIDE 32.6 mmol/L (21.0-32.0); CHLORIDE - SERUM 107 mmol/L (98-107); CREATININE - SERUM 0.9 mg/dL (0.6-1.3); GLUCOSE 101 mg/dL (74-106); POTASSIUM - SERUM 3.4 mmol/L (3.5-5.1); SODIUM 144 mmol/L (136-145); UREA NITROGEN 4 mg/dL (7-18); eGFR NON AFRICAN AMERICAN > 90 mL/min (90-120)
[2019-08-25 08:43] VITALS: BP 159/70
[2019-08-25 12:54] VITALS: BP 116/76
[2019-08-25 18:45] VITALS: BP 119/45
[2019-08-25 20:00] VITALS: BP 122/73
[2019-08-26] VITALS: BP 135/79
[2019-08-26 04:00] VITALS: BP 155/88
[2019-08-26 06:23] LABS: BASOPHILS 0.2 % (0-2); EOSINOPHILS 1.1 % (0-7); HEMATOCRIT 34.6 % (42.0-54.0); HEMOGLOBIN 10.8 g/dL (13.5-17.5); IMMATURE GRANULOCYTES 0.5 % (0-5); LYMPHOCYTES 23.8 % (15-50); MCH 32.8 pg (26.0-34.0); MCHC 31.2 g/dL (31.0-37.0); MCV 105.2 fL (80.0-100.0); MEAN PLATELET VOLUME 9.5 fL (7.4-10.4); MONOCYTES 7.1 % (2-11); NEUTROPHILS 67.3 % (40-80); RBC 3.29 10x6/uL (4.20-6.10); RDW 15.7 % (11.5-14.5); WBC 6.6 10x3/uL (4.8-10.8)
[2019-08-26 06:25] LABS: PLATELET COUNT 216 10x3/uL (130-400)
[2019-08-26 06:44] LABS: ANION GAP 6.2 mmol/L (8-16); CALCIUM 8.6 mg/dL (8.5-10.1); CARBON DIOXIDE 36.2 mmol/L (21.0-32.0); POTASSIUM - SERUM 3.4 mmol/L (3.5-5.1)
[2019-08-26 06:54] LABS: CREATININE - SERUM 1.2 mg/dL (0.6-1.3)
[2019-08-26] MEDS ORDERED: PHENERGAN25 M1 PO (08:31)
[2019-08-26 08:47] VITALS: BP 151/91
--- NOTE | 2019-08-26 09:41 | MORECARE ---
CASE MANAGEMENT DISCHARGE SUMMARY PATIENT: MEL MAYEN UNIT: [id number] ADM DATE: 08/22/19 AGE: 44 : [birth year] SEX: M ROOM/BED: D.2237 AUTHOR: SILVINA,DOC PHYSICIAN: REFERRING PHYSICIAN: CHRISTOPHER JOHN MD DATE OF SERVICE: 08/26/19 Discharge Plan Patient Name: MEL MAYEN Facility: [facility]:[place] : 1975 Planned Disposition: Home Hlth Svc w Plan Readm Anticipated Discharge Date: 08/25/19 Discharge Date: Expected LOS: 3 Initial Reviewer: [email or web address] Initial Review Date: 08/24/2019 Generated: 08/26/19 10:40 am Comments DCP- Discharge Planning Updated by [email or web address]: Emily Baugh on 08/24/19 1:[address] Patient Name: MEL MAYEN Admission Status: Elective Accout number: [id number] Admission Date: 08-22-2019 : 1975 Admission Diagnosis: Attending: CHRISTOPHER JOHN Current LOS: 2 Anticipated DC Date: 08-25-2019 Planned Disposition: Home Hlth Svc w Plan Readm Primary Insurance: [employer] ADV Discharge Planning Comments: CM met with patient to complete initial dc planning assessment. CM educated patient on the CM role and verbal consent given by patient to complete assessment. Patient lives at home with his mother. At discharge patient plans to return and feels this is a safe discharge. CM discussed availability of home health, rehab services, and medical equipment. Patient states he is current with [facility] and would like to resume this on discharge. I spoke with Meagan at [facility] and they will resume care on discharge with wound care. CM will continue to follow and will assist as needed with dc plans/needs. News Videographer: Emily Baugh DCPIA - Discharge Planning Initial Assessment Updated by [email or web address]: Emily Baugh on 08/24/19 2:12 pm * Is the patient Alert and Oriented? Yes * How many steps to enter\exit or inside your home? 0/0 * PCP Dr. Huffman * [facility] [address] * Preadmission Environment Home with Family * ADLs Independent * Equipment None * List name and contact numbers for known caregivers / representatives who currently or will assist patient after discharge: Payton chun - [phone] * Verbal permission to speak to the caregivers and representatives has been obtained from the patient. Yes * Community resources currently utilized Home Health * Please name any agencies selected above. [place] * Additional services required to return to the preadmission environment? No * Can the patient safely return to the preadmission environment? Yes * Has this patient been hospitalized within the prior 30 days at any hospital? No External Providers External Provider: [facility] Next Contact Date: Service Request Date: Service Type: Resolution: Reviewer: Comments: Coverage Notice Reviewer: [id number] Gagandeep Baugh Notice Issued Date-Time: 08/24/2019 10:15 Notice Type: Patient Choice Letter Notice Delivered To: Patient Relationship to Patient: Self Field Agent Name: Delivery Method: HAND - Hand Delivered Peace Days: Prior Verbal Notification: Recipient Understood Notice: Yes Recipient Signature: Yes Med Rec Note Co-signed by Attending: Coverage Notice Comment: TANMAY for [place] [facility] Last DP export: 08/24/19 1:19 Patient Name: MEL MAYEN Page 22454 at 0941 All edits/amendments must be made on the electronic document DICTATION DATE: 08/26/19939 BEDSPREAD SEAMER: DAPHNE 08/26/19939 RPT#: [id number] DC DATE: STATUS: ADM IN [facility] [address] [place] [address] END OF REPORT
--- NOTE | 2019-08-26 09:57 | MORECARE ---
CASE MANAGEMENT DISCHARGE SUMMARY PATIENT: MEL MAYEN UNIT: [id number] ADM DATE: 08/22/19 AGE: 44 : [birth year] SEX: M ROOM/BED: D.2237 AUTHOR: JEANNETTE COOL PHYSICIAN: REFERRING PHYSICIAN: CHRISTOPHER JOHN MD DATE OF SERVICE: 08/26/19 Discharge Plan Patient Name: MEL MAYEN Facility: [facility]:[place] : 1975 Planned Disposition: Home Hlth Svc w Plan Readm Anticipated Discharge Date: 08/25/19 Discharge Date: Expected LOS: 3 Initial Reviewer: [email or web address] Initial Review Date: 08/24/2019 Generated: 08/26/19 10:57 am Comments DCP- Discharge Planning Updated by [email or web address]: Emily Baugh on 08/26/19 8:[address] Patient Name: MEL MAYEN Encounter No: [id number] : 1975 Primary Insurance: [employer] MEDICARE ADV Anticipated DC Date: 08-25-2019 Planned Disposition: Home Hlth Svc w Plan Readm External Planned Provider: : DCP follow-up note: Patient and family in agreement with discharge plan. No changes to plan. I called [facility] and spoke with Meagan, they will see him tomorrow. Clinical and dressing order faxed to [place]. Case management will follow and assist as needed. Emily Baugh DCP- Discharge Planning Updated by [id number]: Emily Baugh on 08/24/19 1:[address] Patient Name: MEL MAYEN Admission Status: Elective Accout number: [id number] Admission Date: 08-22-2019 : 1975 Admission Diagnosis: Attending: CHRISTOPHER JOHN Current LOS: 2 Anticipated DC Date: 08-25-2019 Planned Disposition: Home Hlth Svc w Plan Readm Primary Insurance: [employer] MEDICARE ADV Discharge Planning Comments: CM met with patient to complete initial dc planning assessment. CM educated patient on the CM role and verbal consent given by patient to complete assessment. Patient lives at home with his mother. At discharge patient plans to return and feels this is a safe discharge. CM discussed availability of home health, rehab services, and medical equipment. Patient states he is current with [facility] health and would like to resume this on discharge. I spoke with Meagan at [facility] and they will resume care on discharge with wound care. CM will continue to follow and will assist as needed with dc plans/needs. Fur Tailor: Emily Baugh DCPIA - Discharge Planning Initial Assessment Updated by [email or web address]: Emily Baugh on 08/24/19 2:12 pm * Is the patient Alert and Oriented? Yes * How many steps to enter\exit or inside your home? 0/0 * PCP Dr. Huffman * [facility] * Preadmission Environment Home with Family * ADLs Independent * Equipment None * List name and contact numbers for known caregivers / representatives who currently or will assist patient after discharge: Payton chun - [phone] * Verbal permission to speak to the caregivers and representatives has been obtained from the patient. Yes * Community resources currently utilized Home Health * Please name any agencies selected above. [place] * Additional services required to return to the preadmission environment? No * Can the patient safely return to the preadmission environment? Yes * Has this patient been hospitalized within the prior 30 days at any hospital? No Coverage Notice Reviewer: [id number] Gagandeep Baugh Notice Issued Date-Time: 08/24/2019 10:15 Notice Type: Patient Choice Letter Notice Delivered To: Patient Relationship to Patient: Self Director [place] Name: Delivery Method: HAND - Hand Delivered Peace Days: Prior Verbal Notification: Recipient Understood Notice: Yes Recipient Signature: Yes Med Rec Note Co-signed by Attending: Coverage Notice Comment: [facility] Reviewer: [id number] Gagandeep Baugh Notice Issued Date-Time: 08/26/2019 9:46 Notice Type: IM Discharge Notice Notice Delivered To: Patient Relationship to Patient: Self Director [place] Name: Delivery Method: HAND - Hand Delivered Peace Days: Prior Verbal Notification: Recipient Understood Notice: Yes Recipient Signature: Yes Med Rec Note Co-signed by Attending: Coverage Notice Comment: IMM explained, signed, given, copy placed in MR Last DP export: 08/26/19 8:41 Patient Name: MEL MAYEN Page [phone] at 0957 All edits/amendments must be made on the electronic document DICTATION DATE: 08/26/19956 MATERIALS MANAGEMENT CLERK: DAPHNE 08/26/19956 RPT#: [id number] DC DATE: STATUS: ADM IN [facility] [address] [place] [address] END OF REPORT
--- NOTE | 2019-08-30 08:08 | MORECARE ---
CASE MANAGEMENT DISCHARGE SUMMARY PATIENT: MEL MAYEN UNIT: [id number] ADM DATE: 08/22/19 AGE: 44 : 73 SEX: M ROOM/BED: D.2237 AUTHOR: SILVINA,DOC PHYSICIAN: REFERRING PHYSICIAN: CHRISTOPHER JOHN MD DATE OF SERVICE: 08/30/19 Discharge Plan Patient Name: MEL MAYEN Facility: [facility]:[place] : 1975 Planned Disposition: Home Hlth Svc w Plan Readm Anticipated Discharge Date: 08/25/19 Discharge Date: 08/26/2019 Expected LOS: 3 Initial Reviewer: [email or web address] Initial Review Date: 08/24/2019 Generated: 08/30/19 9:08 am Comments DCP- Discharge Planning Updated by [email or web address]: Emily Baugh on 08/26/19 8:[address] Patient Name: MEL MAYEN Encounter No: [id number] : 1975 Primary Insurance: [employer] MEDICARE ADV Anticipated DC Date: 08-25-2019 Planned Disposition: Home Hlth Svc w Plan Readm External Planned Provider: : DCP follow-up note: Patient and family in agreement with discharge plan. No changes to plan. I called [facility] and spoke with Meagan, they will see him tomorrow. Clinical and dressing order faxed to [place]. Case management will follow and assist as needed. Emily Baugh DCP- Discharge Planning Updated by [email or web address]: Emily Baugh on 08/24/19 1:[address] Patient Name: MEL MAYEN Admission Status: Elective Accout number: [id number] Admission Date: 08-22-2019 : 1975 Admission Diagnosis: Attending: CHRISTOPHER JOHN Current LOS: 2 Anticipated DC Date: 08-25-2019 Planned Disposition: Home Hlth Svc w Plan Readm Primary Insurance: [employer] MEDICARE ADV Discharge Planning Comments: CM met with patient to complete initial dc planning assessment. CM educated patient on the CM role and verbal consent given by patient to complete assessment. Patient lives at home with his mother. At discharge patient plans to return and feels this is a safe discharge. CM discussed availability of home health, rehab services, and medical equipment. Patient states he is current with [facility] health and would like to resume this on discharge. I spoke with Meagan at [facility] and they will resume care on discharge with wound care. CM will continue to follow and will assist as needed with dc plans/needs. Surveillance Agent: Emily Baugh DCPIA - Discharge Planning Initial Assessment Updated by [email or web address]: Emily Baugh on 08/24/19 2:12 pm * Is the patient Alert and Oriented? Yes * How many steps to enter\exit or inside your home? 0/0 * PCP Dr. Huffman * [facility] * Preadmission Environment Home with Family * ADLs Independent * Equipment None * List name and contact numbers for known caregivers / representatives who currently or will assist patient after discharge: Payton chun - [phone] * Verbal permission to speak to the caregivers and representatives has been obtained from the patient. Yes * Community resources currently utilized Home Health * Please name any agencies selected above. [place] * Additional services required to return to the preadmission environment? No * Can the patient safely return to the preadmission environment? Yes * Has this patient been hospitalized within the prior 30 days at any hospital? No Coverage Notice Reviewer: [id number] Gagandeep Baugh Notice Issued Date-Time: 08/24/2019 10:15 Notice Type: Patient Choice Letter Notice Delivered To: Patient Relationship to Patient: Self Cardiac Cath Tech Name: Delivery Method: HAND - Hand Delivered Peace Days: Prior Verbal Notification: Recipient Understood Notice: Yes Recipient Signature: Yes Med Rec Note Co-signed by Attending: Coverage Notice Comment: TANMAY for [facility] Reviewer: [id number] Gagandeep Baugh Notice Issued Date-Time: 08/26/2019 9:46 Notice Type: IM Discharge Notice Notice Delivered To: Patient Relationship to Patient: Self Cardiac Cath Tech Name: Delivery Method: HAND - Hand Delivered Peace Days: Prior Verbal Notification: Recipient Understood Notice: Yes Recipient Signature: Yes Med Rec Note Co-signed by Attending: Coverage Notice Comment: IMM explained, signed, given, copy placed in MR Last DP export: 08/26/19 8:57 Patient Name: MEL MAYEN Page [phone] at 0808 All edits/amendments must be made on the electronic document DICTATION DATE: 08/30/19807 PLATE MAKER: DAPHNE 08/30/19807 RPT#: [id number] DC DATE:08/26/19 STATUS: DIS IN [facility] [address] [place] [address] END OF REPORT
== END 2019-08-26 13:04 | disposition home health service (06) | DRG 330 ==
LOC: D.SDCHOLD 08-22 05:45 → D.MS 08-22 05:45 → D.M2 08-22 08:00 → D.MS 08-22 10:08
PROVIDERS: Anesthesiology; ADMIT Surgery; ATTEND Surgery
PROC: 0DBB0ZZ Excision of Ileum, Open Approach (ICD-10-PCS; principal; 2019-08-22 08:00)
DX: Z43.2 Encounter for attention to ileostomy (principal); K56.7 Ileus, unspecified; F31.9 Bipolar disorder, unspecified; J44.9 Chronic obstructive pulmonary disease, unspecified

== ENCOUNTER → 2019-10-27 11:44 | Outpatient (CLI) | payer MEDICARE, MEDICAID ==
[2019-08-23 17:59] VITALS: BMI 32.5
[~2019-10-27 11:44] MED LIST changes: +PHENERGAN25 M1 PO
[2019-10-27 12:15] LABS: BASOPHILS 0.2 % (0-2); EOSINOPHILS 0.5 % (0-7); HEMATOCRIT 46.3 % (42.0-54.0); HEMOGLOBIN 15.1 g/dL (13.5-17.5); IMMATURE GRANULOCYTES 0.2 % (0-5); LYMPHOCYTES 21.2 % (15-50); MCH 33.7 pg (26.0-34.0); MCHC 32.6 g/dL (31.0-37.0); MCV 103.3 fL (80.0-100.0); MEAN PLATELET VOLUME 9.3 fL (7.4-10.4); MONOCYTES 6.8 % (2-11); NEUTROPHILS 71.1 % (40-80); RBC 4.48 10x6/uL (4.20-6.10); RDW 16.4 % (11.5-14.5); WBC 8.1 10x3/uL (4.8-10.8)
[2019-10-27 12:16] LABS: PLATELET COUNT 312 10x3/uL (130-400)
[2019-10-27 12:35] LABS: CALC OSMOLALITY 268 mosm/kg (275-300); CALCIUM 8.6 mg/dL (8.5-10.1); CARBON DIOXIDE 27.1 mmol/L (21.0-32.0); CHLORIDE - SERUM 103 mmol/L (98-107); CREATININE - SERUM 0.9 mg/dL (0.6-1.3); GLUCOSE 97 mg/dL (74-106); POTASSIUM - SERUM 4.4 mmol/L (3.5-5.1); SODIUM 136 mmol/L (136-145); UREA NITROGEN 5 mg/dL (7-18); eGFR NON AFRICAN AMERICAN > 90 mL/min (90-120)
[2019-11-03 12:08] LABS: OVA + PARASITE EXAM Final report (())
== END | disposition home or self-care (01) ==
LOC: D.RAD 11:44
PROVIDERS: ATTEND Surgery
DX: R19.7 Diarrhea, unspecified (principal); Z93.2 Ileostomy status

== ENCOUNTER 2020-04-09 11:06 | Day surgery (SDC) | payer MEDICARE, MEDICAID ==
[~2020-04-09] VITALS: Ht 175.3 cm; Wt 94.5 kg
[2020-04-09 11:27] LABS: HEMOGLOBIN 15.6 g/dL (13.5-17.5); MCH 35.9 pg (26.0-34.0); MCHC 33.2 g/dL (31.0-37.0); MEAN PLATELET VOLUME 9.2 fL (7.4-10.4); RBC 4.35 10x6/uL (4.20-6.10); RDW 13.7 % (11.5-14.5); WBC 7.2 10x3/uL (4.8-10.8)
[2020-04-09 11:37] LABS: APTT 26.9 SECONDS (22.8-39.4); INR 1.04 (0.85-1.17); PROTIME 13.6 SECONDS (11.6-15.0)
[2020-04-09 13:50] VITALS: BP 125/74; Ht 175.3 cm; Wt 94.5 kg
--- NOTE | 2020-04-09 15:31 | NUR ---
DC INSTRUCTIONS GIVEN TO PT/FAMILY. STATE UNDERSTANDING. DC'D IV CATH FULLY INTACT.
--- NOTE | 2020-04-09 15:42 | NUR ---
PT LEFT UNIT VIA WC AT 1542
--- NOTE | 2020-04-10 14:16 | OP ---
PATIENT NAME: MEL MAYEN MEDICAL RECORD: [id number] :[birth year] LOCATION:[facility] ADMISSION DATE: SURGEON: WOODY MARROQUIN DO DATE OF OPERATION: 04/09/2020 PROCEDURE: Colonoscopy with biopsies and stool collection. INDICATIONS FOR PROCEDURE: Change in bowel habits, hematochezia, chronic diarrhea. SCOPE: Olympus video pediatric colonoscope. MEDICATIONS: Propofol 350 mg IV per anesthesia. WITHDRAWAL TIME: 13 minutes. ESTIMATED BLOOD LOSS: Minimal. COMPLICATIONS: None. FINDINGS: Informed consent was given. The patient was made comfortable with the above medication. After reaching an adequate level of sedation by slow IV push, the patient was placed on his left side. A digital rectal examination was performed and was normal. The endoscope was then advanced under direct visualization through the rectum to the cecum and terminal ileum. The endoscope was slowly withdrawn and mucosa was carefully examined. The prep quality was poor. There were no polyps visualized on today's examination. There was evidence of a prior surgery with an anastomosis located at approximately 50 cm from the anal verge. There was anastomotic ulcer along this line consistent with decreased blood flow to the site. There were no nodularities or polypoid tissue in the location and nothing that appeared abnormal or malignant. There were no diverticula seen on today's examination. Retroflexion was performed in the rectum with evidence of prior intervention. There were some grade I internal hemorrhoids present without bleeding. The endoscope was withdrawn from the patient. The patient tolerated the procedure well and there were no complications. During this examination, stool was collected to submit for further infectious studies and random biopsies were taken to rule out microscopic colitis. IMPRESSION: 1. Evidence of prior surgery at approximately 50 cm from the anal verge. 2. Anastomotic ulcer was present. 3. Evidence of prior intervention involving the rectum. 4. Grade I internal hemorrhoids without bleeding. PLAN AND RECOMMENDATIONS: 1. Discharge home when recovery parameters are met. 2. Follow up biopsy specimen results. 3. High fiber diet. 4. Supplement diet with 1 tablespoon of fiber daily. 5. Okay to continue Imodium as needed. 6. Add cholestyramine 4 grams p.o. b.i.d. to bulk up stools while awaiting biopsy results. 7. Follow up in GI clinic in 3-4 weeks for further recommendations. 8. Repeat colonoscopy at age 49 for colon cancer screening. OPERATIVE REPORT [id number] KARELYCHITRA MEJIAJOSE ENRIQUECLARITZA KATZ TRANSINT:[id number] Voice Confirmation ID: [id number] DOCUMENT ID: [id number] WOODY MARROQUIN DO at 1416 CC: [id number] DICTATION DATE: 04/09/20 1457 TRANSPORTATION TECHNICIAN: 04/09/20 2355 [facility] 04/09/20 [place] [id number]
== END 2020-04-09 15:42 | disposition home or self-care (01) ==
LOC: D.OPS 11:06
PROVIDERS: Anesthesiology; ATTEND Internal Medicine Gastroenterology
DX: R19.4 Change in bowel habit (principal); K92.1 Melena; K52.9 Noninfective gastroenteritis and colitis, unspecified; R12 Heartburn